=== PATIENT | male | born 1970 | race Two or more races ===

== ENCOUNTER 2021-01-21 12:49 | Inpatient (IN) | payer OTHER ==
[~2021-01-21] VITALS: Ht 175.3 cm; Wt 72.6 kg
[2021-01-21] MEDS ORDERED: COZAAR25 MG (13:24)
[2021-01-21] MEDS ORDERED: ADULT ASPIRIN81 MG (13:24)
[2021-01-21] MEDS ORDERED: ALDACTONE50 MG (13:25)
[2021-01-21] MEDS ORDERED: PROTONIX40 M1 (13:25)
[2021-01-21] MEDS ORDERED: JANTOVEN2.5 MG (13:25)
[2021-01-21] MEDS ORDERED: TOPROL XL25 M1 (13:26)
[2021-01-24] MEDS ORDERED: PENICILLIN V P500 MG (13:16)
[2021-01-24] MEDS ORDERED: GABAPENTIN300 M2 (13:17)
== END 2021-01-27 10:43 | disposition home or self-care (01) | DRG 177 ==
LOC: ER 12:49 → MEDJ 20:35
PROVIDERS: ADMIT Internal Medicine; ATTEND Internal Medicine
PROC: XW033E5 Introduction of Remdesivir Anti-infective into Peripheral Vein, Percutaneous Approach, New Technology Group 5 (ICD-10-PCS; principal; 2021-01-21)
PROC: 8E0ZXY6 Isolation (ICD-10-PCS; 2021-01-21)
PROC: 3E0F7SF Introduction of Other Gas into Respiratory Tract, Via Natural or Artificial Opening (ICD-10-PCS; 2021-01-21)
PROC: 4A033R1 Measurement of Arterial Saturation, Peripheral, Percutaneous Approach (ICD-10-PCS; 2021-01-21)
PROC: 4A12X4Z Monitoring of Cardiac Electrical Activity, External Approach (ICD-10-PCS; 2021-01-21)
PROC: CB2YYZZ Tomographic (Tomo) Nuclear Medicine Imaging of Respiratory System using Other Radionuclide (ICD-10-PCS; 2021-01-21)
DX: U07.1 COVID-19 (principal); J12.82 Pneumonia due to coronavirus disease 2019; I50.22 Chronic systolic (congestive) heart failure; I49.9 Cardiac arrhythmia, unspecified; Z85.038 Personal history of other malignant neoplasm of large intestine; R07.9 Chest pain, unspecified; I11.0 Hypertensive heart disease with heart failure; R11.0 Nausea; R09.02 Hypoxemia; M46.42 Discitis, unspecified, cervical region; Z20.822 Contact with and (suspected) exposure to COVID-19